=== PATIENT | male | born 1960 ===

== ENCOUNTER 2018-05-19 23:59 | Emergency (ER) | payer OTHER ==
[~2018-05-19] VITALS: Ht 165.1 cm; Wt 72.6 kg
[~2018-05-19 23:59] MED LIST: CARAFATE SU1 G/10 ML PO; KETO10TA2 PO
[2018-05-20] MEDS ORDERED: AMOX-CLAV 875-1 EACH PO (02:44)
[2018-05-20] MEDS ORDERED: NAPROXEN SODIU550 M1 PO (02:44)
== END 2018-05-20 03:00 | disposition home or self-care (01) ==
LOC: ER 23:59
DX: S62.521B Displaced fracture of distal phalanx of right thumb, initial encounter for open fracture (principal); S61.021A Laceration with foreign body of right thumb without damage to nail, initial encounter; W54.0XXA Bitten by dog, initial encounter; Y93.89 Activity, other specified; Y92.89 Other specified places as the place of occurrence of the external cause; Y99.8 Other external cause status

== ENCOUNTER 2020-12-01 13:04 | Emergency (ER) | payer OTHER ==
[~2020-12-01] VITALS: Ht 167.6 cm; Wt 77.1 kg
[~2020-12-01 13:04] MED LIST changes: +AMOX-CLAV 875-1 EACH PO; +NAPROXEN SODIU550 M1 PO
[2020-12-01] MEDS ORDERED: TRIUMEQ TABLET1 EACH (13:40)
[2020-12-01] MEDS ORDERED: KETO10TA2 PO (16:30)
[2020-12-01] MEDS ORDERED: NORFLEX100MG PO (16:30)
== END 2020-12-01 17:46 | disposition home or self-care (01) ==
LOC: ER 13:04
DX: M25.562 Pain in left knee (principal); M54.2 Cervicalgia